=== PATIENT | male | born 1980 | race Caucasian/White ===

== ENCOUNTER 2017-05-26 06:15 | Emergency (ER) | payer OTHER ==
[~2017-05-26] VITALS: Ht 182.9 cm; Wt 136.1 kg
[~2017-05-26 06:15] MED LIST: PRILOSEC OTC20 MG PO
[2017-05-26] MEDS ORDERED: LIDODERM 5% P1 PATCH TD (07:13)
[2017-05-26] MEDS ORDERED: NAPROXEN500 MG PO (07:13)
[2017-05-26] MEDS ORDERED: FLEXERIL10 MG PO (07:13)
[2017-05-26 07:42] VITALS: BP 146/100
== END 2017-05-26 07:43 | disposition home or self-care (01) ==
LOC: EME 06:15
DX: S39.012A Strain of muscle, fascia and tendon of lower back, initial encounter (principal); X58.XXXA Exposure to other specified factors, initial encounter
CPT/HCPCS: 99281; 99284; J1885